=== PATIENT | male | born 1985 | race Two or more races ===

== ENCOUNTER 2017-10-09 16:29 | Emergency (ER) | payer SELFPAY ==
[2017-10-09 16:37] VITALS: BP 123/66
--- NOTE | 2017-10-09 17:36 | ER Document Report ---
HPI - HPI Pain Level: 5 Context: Patient is a 32-year-old male who presents emergency department the chief complaint of abdominal wall discomfort. Patient states that he has had issues like this before after heavy lifting. He admits to pain only 1 sitting up, walking and certain twisting motions but completely resolves at rest or lying down. He states that his symptoms started yesterday after living a furnace. Otherwise denies any bulges, but her tender areas. Any nausea or vomiting, fever or chills. Past Medical History - Social History Smoking Status: Never Smoker Family History: Reviewed & Not Pertinent Vertical Provider Document - CONSTITUTIONAL Agree With Documented VS: Yes Notes: PHYSICAL EXAM GENERAL: Alert, interacts well. HEAD: Normocephalic, atraumatic. EYES: Pupils equal, round, and reactive to light. Extraocular movements intact. ENT: Oral mucosa moist, tongue midline. NECK: Full range of motion. Supple. Trachea midline. LUNGS: Clear to auscultation bilaterally, no wheezes, rales, or rhonchi. No respiratory distress. HEART: Regular rate and rhythm. No murmurs, gallops, or rubs. ABDOMEN: Soft, nondistended, nontender. No guarding, rebound, or rigidity.. Bowel sounds present in all 4 quadrants. EXTREMITIES: Moves all 4 extremities spontaneously. No edema, radial and dorsalis pedis pulses 2/4 bilaterally. No cyanosis. NEUROLOGICAL: Alert and oriented x4. Normal speech. PSYCH: Normal affect, normal mood. SKIN: Warm, dry, normal turgor. No rashes or lesions noted. Course - Re-evaluation Re-evalutation: 10/09/17 17:35 Patient is a 32-year-old male presents emergency department with symptoms consistent with abdominal wall strain. Patient's admits that he was lifting a furniture yesterday and had abdominal wall pain after this activity. He states it is consistent with whenever he does crunches. He denies any nausea, vomiting , diarrhea, fevers or chills. He denies any decreased appetite. Presentation is not consistent or concerning for appendicitis, peritonitis - Vital Signs Vital signs: Temp Pulse Resp BP Pulse Ox 98.5 F 70 14 123/66 96 10/09/17 16:36 10/09/17 16:36 10/09/17 16:36 10/09/17 16:36 10/09/17 16:36 Discharge - Discharge Clinical Impression: Abdominal wall strain Qualifiers: Encounter type: initial encounter Qualified Code(s): S39.011A - Strain of muscle, fascia and tendon of abdomen, initial encounter Condition: Good Disposition: HOME, SELF-CARE Instructions: Muscle Strain ([facility])
== END 2017-10-09 17:40 | disposition home or self-care (01) ==
LOC: ER 16:29
DX: S39.011A Strain of muscle, fascia and tendon of abdomen, initial encounter (principal); X50.0XXA Overexertion from strenuous movement or load, initial encounter
CPT/HCPCS: 99283

== ENCOUNTER 2018-08-22 09:54 | Emergency (ER) | payer OTHER ==
[2018-08-22 10:02] VITALS: BP 130/83
[2018-08-22] MEDS ORDERED: METHOCARBAMOL 500 MG TABLET PO ONE (10:16)
--- NOTE | 2018-08-22 10:17 | ER Document Report ---
HPI - HPI Patient complains to provider of: r knee pain Time Seen by Provider: 08/22/18 10:09 Onset: Yesterday Onset/Duration: Gradual Quality of pain: Achy Pain Level: 5 Context: Patient presents complaining of right knee pain that started yesterday. Patient does have a history of MCL injury was told that he needs surgery. Patient denies any traumatic recent injury. Patient does work doing construction and complains of posterior leg pain with extension of the right knee. Associated Symptoms: Other - Right knee pain Exacerbated by: Standing, Movement, Walking Relieved by: Denies Similar symptoms previously: No Recently seen / treated by doctor: No - ROS ROS below otherwise negative: Yes Systems Reviewed and Negative: Yes All other systems reviewed and negative - CONSTITUTIONAL Constitutional: DENIES: Fever - GASTROINTESTINAL Gastrointestinal: DENIES: Nausea - MUSCULOSKELETAL Musculoskeletal: REPORTS: Extremity pain - DERM Skin Color: Normal Skin Problems: None Past Medical History - General Information source: Patient - Social History Smoking Status: Never Smoker Frequency of alcohol use: None Drug Abuse: None Occupation: construction Lives with: Family Family History: Reviewed & Not Pertinent - Medical History Medical History: Negative Renal/ Medical History: Denies: Hx Peritoneal Dialysis Past Surgical History: Reports: Hx Orthopedic Surgery Vertical Provider Document - CONSTITUTIONAL Agree With Documented VS: Yes Exam Limitations: No Limitations General Appearance: WD/WN, No Apparent Distress - INFECTION CONTROL TRAVEL OUTSIDE OF THE [place] IN LAST 30 DAYS: No - HEENT HEENT: Atraumatic, Normocephalic - NECK Neck: Normal Inspection - RESPIRATORY Respiratory: Breath Sounds Normal, No Respiratory Distress - CARDIOVASCULAR Cardiovascular: Regular Rate, Regular Rhythm Pulses: Normal: Dorsalis pedis - MUSCULOSKELETAL/EXTREMETIES Musculoskeletal/Extremeties: MAEW, Tender - Right knee joint tenderness to the popliteal area, tenderness to bicep femoris of RLE, No Edema Notes: soft muscle compartments - NEURO Level of Consciousness: Awake, Alert, Appropriate Motor/Sensory: No Motor Deficit - DERM Integumentary: Warm, Dry, No Rash Course - Vital Signs Vital signs: Temp Pulse Resp BP Pulse Ox 97.6 F 61 16 130/83 H 95 08/22/18 10:00 08/22/18 10:00 08/22/18 10:00 08/22/18 10:00 08/22/18 10:00 Discharge - Discharge Clinical Impression: History of disruption of knee ligament Right knee sprain Qualifiers: Encounter type: initial encounter Involved ligament of knee: unspecified ligament Qualified Code(s): S83.91XA - Sprain of unspecified site of right knee, initial encounter Condition: Stable Disposition: HOME, SELF-CARE Instructions: Use of Crutches ([facility]), Ice & Elevation ([facility]), Suspected Internal Knee Injury ([facility]), Sprained Knee ([facility]) Additional Instructions: Return immediately for any new or worsening symptoms Followup with your primary care provider, call tomorrow to make a followup appointment Weightbearing as tolerated Follow-up with orthopedics for further evaluation, call today for an appointment Prescriptions: Methocarbamol [Robaxin 500 Mg Tablet] 500 mg PO QID PRN #40 tablet PRN Reason: Forms: Return to Work Referrals: [facility] [Provider Group] - Follow up tomorrow
== END 2018-08-22 10:24 | disposition home or self-care (01) ==
LOC: ER 09:54
DX: S83.91XA Sprain of unspecified site of right knee, initial encounter (principal); M25.561 Pain in right knee; X58.XXXA Exposure to other specified factors, initial encounter
CPT/HCPCS: 99283

== ENCOUNTER 2018-10-23 15:45 | Emergency (ER) | payer OTHER ==
[2018-10-23 15:54] VITALS: BP 136/86
[2018-10-23] MEDS ORDERED: IBUPROFEN 800 MG TABLET PO ONE (16:57)
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
== END 2018-10-23 17:17 | disposition home or self-care (01) ==
LOC: ER 15:45
DX: G89.29 Other chronic pain (principal); M25.561 Pain in right knee; M25.461 Effusion, right knee
CPT/HCPCS: 99283; L1830